=== PATIENT | female | born 2000 | race Caucasian/White ===

== ENCOUNTER 2021-07-06 13:32 | Emergency (ER) | payer BC, SELFPAY ==
[2021-07-06 13:33] VITALS: BP 152/109; PULSE 119; RESP 16; TEMP 37.9; O2SAT 100; BMI 37.9
--- NOTE | 2021-07-06 14:26 | EKG12_ITS ---
Test Reason : Blood Pressure : / mmHG Vent. Rate : 099 BPM Atrial Rate : 099 BPM P-R Int : 140 ms QRS Dur : 082 ms QT Int : 334 ms P-R-T Axes : 019 009 -02 degrees QTc Int : 428 ms Normal sinus rhythm Normal ECG Confirmed by LILLIAM PACHECO, BRIA ([id number]), society editor PATRICE VELOZ ([id number]) on 07/10/2021 7:20:34 AM Referred By: RICHY Confirmed By:BRIA VYAS MD
--- NOTE | 2021-07-06 14:27 | EDS_ITS ---
HPI History of Present Illness Chief Complaint: General Illness Informant: patient Narrative Narrative: Patient is on day 8 of Covid symptoms. She has had some cough without productive sputum. She is not having actual dyspnea. Her appetite is down but no nausea vomiting or diarrhea. She has had a couple episodes of posttussive vomiting only but she is able to eat and drink without difficulties. She admits she is not drinking much fluids just because she is not interested. She has some slight myalgias and malaise. She states her cough is actually starting to get better. She has not been vaccinated. She was encouraged by her mother to come get checked out just to make sure she is okay. She has no chronic medical conditions No allergies Only medication is Depo Prior surgeries/injuries or skull fracture Non-smoker lives independently goes to school [employer] [facility] Allergy/AdvReac Type Severity Reaction Status Date / Time No Known Allergies Allergy Verified 07/06/21 13:38 Social History Smoking Status: Never smoker ROS ROS ED Constitutional Constitutional ED: Reports chills, fever(s) and subjective; Denies sweats Eyes Eyes: Denies blurry vision or change in vision ENT ENT ED: Reports rhinorrhea; Denies sore throat Cardiovascular Cardiovascular: Denies chest pain or palpitations Respiratory/Chest Respiratory/Chest: Reports cough; Denies dyspnea, dyspnea on exertion or sputum Gastrointestinal Gastrointestinal: Reports vomiting and other Details: Posttussive vomiting only. ; Denies abdominal pain, diarrhea or nausea Genitourinary Genitourinary ED: Denies dysuria Musculoskeletal Musculoskeletal: Reports myalgias Integumentary Denies rash Neurologic Neurologic: Denies headache(s) or weakness Psychiatric Psychiatric: Denies anxiety or depression Endocrine Endocrinology: Denies polydipsia or polyuria Allergic/Immunologic Allergic/Immunologic ED: Denies urticaria EXAM Physical Exam Const Vital Signs: 07/06/21 13:33 07/06/21 15:07 Temperature 100.3 F H Temperature Source Temporal Pulse Rate 119 H Respiratory Rate 16 Respiratory Effort Normal Respiratory Pattern Normal Blood Pressure 152/109 H Blood Pressure Mean 123 Pulse Ox 100 Oxygen Delivery Method Room Air Positive well nourished HEENT Reports moist mucous membranes Negative for trauma Eyes General Eye ED: Negative for pale conjunctiva or scleral icterus Neck no JVD Resp normal respiratory effort and clear to auscultation bilaterally Effort and Inspection: Negative for pain with movement Auscultation: Negative for rales, rhonchi, wheezes or diminished lung sounds Cardio regular rate and regular rhythm Rate: other Other Details: Rate is actually only about 90-95 when I see her. I think this is likely up due to mild dehydration and mild elevated temperature. GI normal to inspection, nondistended, normoactive bowel sounds and non-tender Palpation: soft Back/Spine no CVA tenderness Extremity General Extremety ED: Negative for tenderness Neuro oriented x3 Sensorium / Orientation: alert Psych mental status grossly normal Skin no rashes or lesions noted MDM MDM MDM Narrative Medical decision making narrative: Patient's EKG is overall unremarkable. Her saturations are normal. She is not dyspneic. Her chest x-ray shows possibility of a small infiltrate. This is consistent with her Covid. I do not think we need to add antibiotics or steroids or further treatment at this time. We discussed reasons to return. Radiography Diagnostic Testing: Clinical Impression(s) from Imaging Studies Chest X-Ray 07/06/21 14:30 IMPRESSION: Possible very faint infiltrate left midlung zone right lung base. Clinical correlation follow-up to resolution recommended. Electronically Signed: Yomi Huang MD at 14:42 EST Tel , Service support , EKG Initial EKG: Comments: G done for cough and generalized illness read by me shows normal sinus rhythm with a rate of 99. No ectopy. No acute ST elevation or depression. VT interval QRS duration and QTc are normal. Discharge Plan Triage Chief Complaint: General Illness ED Provider: Nick Chicas Dx/Rx/DC Orders Clinical Impression: COVID-19 Instructions: Caring for Someone Who Has COVID-19 Primary Care Provider: Care Physician,No Primary Referrals: Fast,Greer, DO [NON-STAFF] - 1 Week if not improving NOT,DEFINED [NON-STAFF] - Disposition Disposition: Home, Self Care
--- NOTE | 2021-07-06 14:30 | RAD_ITS ---
INDICATION: cough covid EXAMINATION/TECHNIQUE: X-RAY - XR Chest 1 View COMPARISON: None. FINDINGS: LINES/DEVICES: None. LUNGS: There is faint increased density left midlung zone and possibly right lower lobe. MEDIASTINUM AND CARDIOVASCULAR STRUCTURES: Cardiac silhouette not enlarged. Central airways and mediastinal contour are unremarkable. BONES AND SOFT TISSUES: Plate and screw fixation left clavicle. RAD/Chest 1 View (Portable) IMPRESSION: Possible very faint infiltrate left midlung zone right lung base. Clinical correlation follow-up to resolution recommended. Electronically Signed: Yomi Huang MD at 14:42 EST Tel , Service support ,
--- NOTE | 2021-07-06 15:27 | CM.ED ---
JAMIR Note Referral Source: Case Find Referral Reason: Self Pay and No PCP JAMIR met with patient. Patient said that she has a paper that shows I am on my dad's insurance but she couldn't get all the information from it. JAMIR provided patient with self pay packet. JAMIR also provided patient with list of 2020 Healthcare Provider Directory. No other issues voiced by patient. SW remains available. Plan: Self Pay resource packet provided and list of 2020 Healthcare Provider Directory Sheridan VELASQUEZ
[2021-07-06 15:51] VITALS: BP 121/84; PULSE 103; O2SAT 99
== END 2021-07-06 15:51 | disposition home or self-care (01) ==
PROVIDERS: Emergency Provider Emergency Medicine
DX: U07.1 COVID-19 (principal)
CPT/HCPCS: 71045; 93005; 99282